=== PATIENT | male | born 1995 ===

== ENCOUNTER 2018-07-23 13:00 | Emergency (ER) | payer MEDICAID, OTHER ==
[2018-07-23 13:00] VITALS: BMI 25.7
[2018-07-23 13:21] VITALS: RESP 18; O2SAT 99
--- NOTE | 2018-07-23 14:53 | ED PDOC ---
HPI: General Adult Time Seen by Provider: 07/23/18 14:29 Chief Complaint (Nursing): ENT Problem Chief Complaint (Provider): Left Ear Congestion History Per: Patient History/Exam Limitations: no limitations Onset/Duration Of Symptoms: Days (x1) Current Symptoms Are (Timing): Still Present Additional Complaint(s): 22 year old male presents to the ED for evaluation of possible earwax build up in his left ear for the past day. Patient reports while trying to clean his left ear yesterday, he noticed his hearing in that ear began to become muffled. Denies history of similar symptoms, ear pain, fever, chills, throat pain, dizziness, cough, shortness of breath, and taking meds prior to arrival. PMD: none provided Past Medical History Reviewed: Historical Data, Nursing Documentation, Vital Signs Vital Signs: Last Vital Signs Temp 98.3 F 07/23/18 13:19 Pulse 88 07/23/18 13:19 Resp 18 07/23/18 13:19 BP 113/79 07/23/18 13:19 Pulse Ox 99 07/23/18 13:19 - Medical History PMH: Depression - Surgical History Surgical History: No Surg Hx - Family History Family History: States: Unknown Family Hx - Social History Current smoker - smoking cessation education provided: No Alcohol: None Drugs: Denies - Home Medications Home Medications: Ambulatory Orders Medication Instructions Recorded Lorazepam [Ativan] 0.5 mg PO BID #30 tab 04/25/16 RX: Risperidone [Risperdal M-TAB] 0.5 mg PO HS #30 odt 04/25/16 Carbamide Peroxide [Debrox Ear 6 drop BID #1 bottle 07/23/18 Drops] - Allergies Allergies/Adverse Reactions: Allergies Allergy/AdvReac Type Severity Reaction Status Date / Time No Known Allergies Allergy Verified 04/21/16 11:44 Review of Systems ROS Statement: Except As Marked, All Systems Reviewed And Found Negative Constitutional: Negative for: Fever, Chills ENT: Positive for: Other (left ear congestion with muffled hearing). Negative for: Ear Pain, Throat Pain Respiratory: Negative for: Cough, Shortness of Breath Neurological: Negative for: Dizziness Physical Exam - Reviewed Nursing Documentation Reviewed: Yes Vital Signs Reviewed: Yes - Physical Exam Comments: GENERAL APPEARANCE: Patient is awake, alert, oriented x 3, in no acute distress. Resting comfortably. SKIN: Warm, dry; (-) cyanosis. NECK: Supple, FROM (-) stiffness, (-) tenderness, (-) lymphadenopathy. ENMT: Left Ear Canal: (+) partial cerumen impaction, visualized TM: (-) bulging and (-) erythema, (-)effusion, (-) perforation,(-) vesicles, other ear normal. Hearing intact. Frontal / maxillary sinuses : (-) tenderness. (-) TMJ tenderness. Pharynx: Clear; uvula midline (-) erythema, (-) exudate. Airway patent: (-) stridor. LUNGS: clear to auscultation bilaterally, (-) wheezing, (-) rhonchi (-) rales CARDIAC: RRR - ECG O2 Sat by Pulse Oximetry: 99 (RA) Pulse Ox Interpretation: Normal Medical Decision Making Medical Decision Making: Initial Impression: partial cerumen impaction of left ear Time: 1450 Initial Plan: --No immediate intervention indicated at this time in the ED. Will d/c patient with ENT referral and a script for Debrox, advised to use as directed. Based on history, exam and diagnostic results, plan will be for outpatient follow up with ENT. Patient instructed to follow-up with pmd / referral provided / the clinic in 1- 2 days without fail. Advised to take medication as prescribed. Return to the emergency room at any time for any new or worsening symptoms. Patient states he fully agrees with and understands discharge instructions. States that he agrees with the plan and disposition. Verbalized and repeated discharge instructions and plan. I have given the patient opportunity to ask any additional questions. ----- Scribe Attestation: Documented by Loida Chu, acting as a scribe for Jacque Trujillo PA-C. Provider Scribe Attestation: All medical record entries made by the Scribe were at my direction and personally dictated by me. I have reviewed the chart and agree that the record accurately reflects my personal performance of the history, physical exam, medical decision making, and the department course for this patient. I have also personally directed, reviewed, and agree with the discharge instructions and disposition. Disposition - Clinical Impression Clinical Impression: Impacted cerumen of left ear - Patient ED Disposition Is Patient to be Admitted: No Counseled Patient/Family Regarding: Studies Performed, Diagnosis, Need For Followup, Rx Given - Disposition Referrals: Jeanmarie Mota MD [Staff Provider] - [facility] [Outside] Disposition: Routine/Home Disposition Time: 14:50 Condition: STABLE Additional Instructions: The emergency medical care you received today was directed at your acute symptoms. If you were prescribed any medication, please fill it and take as directed. It may take several days for your symptoms to resolve. Return to the Emergency Department if your symptoms worsen, do not improve, or if you have any other problems. Please contact your doctor in 2 days for re-evaluation and follow up / or call one of the physicians/clinics you have been referred to that are listed on the Patient Visit Information form that is included in your discharge packet. Bring any paperwork you were given at discharge with you along with any medications you are taking to your follow up visit. Our treatment cannot replace ongoing medical care by a primary care provider (PCP) outside of the emergency department. Prescriptions: Carbamide Peroxide [Debrox Ear Drops] 6 drop BID #1 bottle Instructions: Ear Wax Impaction Forms: [employer] (Angolan) Print Language: BENINESE - POA Present On Arrival: None
[2018-07-23 14:56] VITALS: BP 118/70; PULSE 80; TEMP 98.5
== END 2018-07-23 14:48 | disposition home or self-care (01) ==
LOC: H.ER 13:00
DX: H61.22 Impacted cerumen, left ear (principal)